=== PATIENT | female | born 1990 | race Hispanic/Latino ===

== ENCOUNTER 2018-06-27 09:17 | Observation (INO) | payer BC ==
[2018-06-24 17:18] VITALS: BMI 20.3
[2018-06-27] MEDS ORDERED: Lactated Ringer's 1,000 ML IV ONE ×4 (10:42→19:09)
[2018-06-27 10:58] LABS: BASO % 0.8 % (0.0-2.0); EOS # 0.2 K/uL (0.0-0.7); EOS % 3.9 % (0.0-4.0); LYMPH # 2.2 K/uL (1.0-4.3); LYMPH % 41.3 % (20.0-40.0); MEAN CELL VOLUME 91.7 fl (81.0-99.0); MEAN CORPUSCULAR HEMOGLOBIN 30.1 pg (27.0-31.0); MEAN CORPUSCULAR HGB CONC 32.8 g/dL (33.0-37.0); MEAN PLATELET VOLUME 8.9 fl (7.2-11.7); MONO # 0.4 K/uL (0.0-0.8); MONO % 8.3 % (0.0-10.0); NEUT # 2.4 K/uL (1.8-7.0); NEUT % 45.7 % (50.0-75.0); RBC 4.32 Mil/uL (3.80-5.20); RED CELL DISTRIBUTION WIDTH 13.4 % (11.5-14.5); WHITE BLOOD COUNT 5.3 K/uL (4.8-10.8)
[2018-06-27] MEDS ORDERED: Bupivacaine 0.5% Inj(30mL) ONE (12:54)
[2018-06-27] MEDS ORDERED: Rocuronium 10 mg/ml (5 ml) ONE (13:07)
[2018-06-27] MEDS ORDERED: Midazolam 2 MG/2 ML VIAL ONE (13:07)
[2018-06-27] MEDS ORDERED: ePHEDrine 50 mg/ml Inj ONE (13:07)
[2018-06-27] MEDS ORDERED: Propofol 10 mg/ml Inj (20 ML) ONE (13:07)
[2018-06-27] MEDS ORDERED: Succinylcholine 200 mg/10 ml Inj IV ONE (13:10)
[2018-06-27] MEDS ORDERED: Bupivacaine HCl 0.25% PF (30 ml) Inj ONE ×2 (13:14→13:41)
[2018-06-27] MEDS ORDERED: ceFAZolin 1 GM in Sodium Chloride 0.9% 100 ML IVPB ONE (14:22)
[2018-06-27] MEDS ORDERED: Dexamethasone 4 mg/1 ml ONE (14:40)
[2018-06-27] MEDS ORDERED: Silver Nitrate Topical - Stick TOP ONE (15:47)
[2018-06-27] MEDS ORDERED: Neostigmine 1:1000 (1 mg/ml) Inj ONE (15:47)
[2018-06-27] MEDS ORDERED: DiphenhydrAMINE 50 mg/ml Inj IVP PRN (16:17)
[2018-06-27] MEDS ORDERED: Lactated Ringer's 1,000 ML IV SCH (16:30)
[2018-06-27] MEDS: HYDROmorphone 0.5 mg/0.5 ml ISec IVP PRN ×3 (17:55→23:20)
[2018-06-28] MEDS: HYDROmorphone 0.5 mg/0.5 ml ISec IVP PRN ×2 (03:46→07:20)
[2018-06-28] MEDS: Lactated Ringer's 1,000 ML IV SCH ×2 (04:20→04:21)
--- NOTE | 2018-06-28 06:25 | OP ---
PROCEDURE DATE: 06/27/2018 SURGEON: Siddhartha Moreira MD TAPE FASTENER MACHINE OPERATOR: Rob Warren Gomez Javier D.O. ANESTHESIOLOGIST: Dana Torres MD, MD, Lorenzo TYPE OF ANESTHESIA: General endotracheal. PREOPERATIVE DIAGNOSES: 1. Incapacitating pelvic pain. 2. Incapacitating abdominal pain. 3. history of endometriosis POSTOPERATIVE DIAGNOSES: 1. Incapacitating pelvic pain. 2. Incapacitating abdominal pain. 3. history of endometriosis 5. PROCEDURES PERFORMED: 1. Exam under anesthesia. 2. Video assisted hysteroscopy. 3. Cystoscopy. 4. diagnostic laparoscopy COMPLICATIONS: None. SAMPLES SENT: none INDICATION FOR THE PROCEDURE AND CONSENT: The patient had a long history of pelvic pain, dysmenorrhea, dyspareunia, abdominal pain, and bladder pain. The patient had been thoroughly evaluated and counseled regarding the pros and cons of the procedure, the reasonable alternatives, and possible complications. She understood and accepted the risks involved. Literature was provided to the patient. The patient was understanding and given her history and per surgical exam, she was at high risk in an average patient. She accepted all the risks involved, and all the questions had been answered to her satisfaction. FINDINGS OF SURGERY: Genitalia: Normal external genitalia, cervix without lesion and polyps. Hysteroscopy: Hysteroscopy shows a clear uterine cavity with no polyps or masses noticed. Cystoscopy: The cystoscopy was performed to rule out endometriosis and also any interstitial cystitis and also injury. The bladder was normal with no evidence of stone, trigonitis, or cystitis. A positive jet flow was identified in both ureters. Laparoscopy: The upper abdomen appeared to be normal. Gallbladder was normal. Liver edges appeared to be normal. Ascending colon and transverse were normal. There was evidence of post surgical changes DESCRIPTION OF THE PROCEDURE: Initiation of the case: After adequate anesthesia was obtained, the patient was placed in the dorsal lithotomy position, and with extreme care, placement of the patient with hyperextension and hyperflexing of the hips. At this point, the patient was prepped and draped. The surgeon was gowned and gloved. A timeout was taken according to the hospital procedure and the procedure was started. At this point, we performed cystoscopy, bilateral ureteral catheterization. A cystoscope was inserted into the bladder under direct visualization and the bladder was visualized. The bladder was free of lesions and tumors. There was no evidence of interstitial cystitis, and there was only mild amount of trigonitis. At this point, both ureters were identified and appeared to be in their normal anatomical position. At this point, utilizing an open 5-Bermudian open-ended catheter, the left ureter was catheterized all the way to the distal ureter, and 5 mL of IC-Green was injected into this ureter. Similarly, the contralateral ureter was catheterized all the way to the distal ureter, and 5 mL of IC-Green was injected into the distal ureter. At this point, the stents were removed, and the cystoscope was removed, and the 16-Bermudian Lange was inserted into the bladder. At this point, we proceeded with a hysteroscopy. A speculum was placed into vagina, and the anterior lip of the cervix was grasped. The cervix was dilated, and a hysteroscope was inserted into the cavity. The cavity appeared to be of normal size with no evidence of polyps, cysts, adenomyosis, or fibroids. At this point, we proceeded with placement of a trocar The surgeon was re-gowned and gloved, and open laparoscopy was performed by making incision in the umbilicus and the fascia was incised. The peritoneum was entered in a blunt fashion, and the cannula was inserted under direct visualization. At this point, we proceeded with the diagnostic laparoscopy there were post surgical changes in the cul de sac that showed evidence of prior excisional surgery. both fallopian tubes appeared to be patent. . . We checked for hemostasis and organ integrity and all was normal. The abdomen was desufflated, and the incisions were closed in layers with 0 PDS for the fascia and 4-0 Monocryl for the skin. At the end of the procedure, all tips and instrument counts were correct. The patient tolerated the procedure well and was taken to the recovery room in excellent condition. Lillie GILBERT, Siddhartha BULLOCK
[2018-06-28] MEDS ORDERED: OXYCODONE HYDR PO SCH (09:00)
[2018-06-28] MEDS ORDERED: Acetaminophen 325 MG/10.15 ML PO SCH (09:00)
[2018-06-28] MEDS ORDERED: oxyCODONE 20 mg ER Tab (oxyCONTIN) PO SCH (09:00)
[2018-06-28] MEDS ORDERED: Patient's Own Med (Meloxicam [Mobic] 7.5 MG) PO SCH (09:00)
[2018-06-28] MEDS ORDERED: ACETAMINOPHEN PO SCH (09:00)
[2018-06-28] MEDS ORDERED: POLYETHYLENE GLYCOL 3350 17 GM/Dose PACKET PO SCH (09:00)
[2018-06-28] MEDS: Lactobacillus Acidophilus 500 MU Cap PO SCH ×2 (09:58→10:04)
[2018-06-28 10:54] VITALS: BP 109/60; PULSE 72; RESP 18; O2SAT 98
[2018-06-28 14:26] VITALS: TEMP 99.2
[2018-06-28] MEDS ORDERED: MELATONIN 10 MG PO SCH (22:00)
== END 2018-06-28 11:26 | disposition home or self-care (01) ==
LOC: H.OPSURG 09:17 → H.PEDS 17:59
PROVIDERS: ADMIT Obstetrics & Gynecology Reproductive Endocrinology; ATTEND Obstetrics & Gynecology Reproductive Endocrinology
DX: N80.0 Endometriosis of uterus (principal); N80.1 Endometriosis of ovary; N80.3 Endometriosis of pelvic peritoneum; N80.5 Endometriosis of intestine; N93.9 Abnormal uterine and vaginal bleeding, unspecified; N13.4 Hydroureter; N73.6 Female pelvic peritoneal adhesions (postinfective)
CPT/HCPCS: 36415; 49320; 52005; 58555; 85025; 86850; 86900; 88302; 88304; 96374; 96375; 96376; C1729; C1781; G0378; J0131; J0330; J0690; J1100; J1170; J1200; J1885; J2001; J2250; J2405; J2704; J2710; J3010; J7030; J7120